=== PATIENT | female | born 1965 | race Caucasian/White ===

== ENCOUNTER → 2016-10-19 | Outpatient (REF) | payer BC ==
[~2016-10-19] MED LIST: LISI10TA4 PO
[2016-10-19 13:51] LABS: PERCENT SATURATION 45.8 % (13.2-37.4)
== END ==
LOC: M LAB REF 12:43
PROVIDERS: ATTEND Internal Medicine Medical Oncology
DX: E83.110 Hereditary hemochromatosis (principal)

== ENCOUNTER 2016-11-12 19:58 | Emergency (ER) | payer BC ==
[~2016-11-12] VITALS: Ht 162.6 cm; Wt 79.5 kg
[2016-11-12] MEDS ORDERED: KETOROLAC 30 MG/ML VIAL (J1885) IV ONE (20:45)
[2016-11-12] MEDS ORDERED: NS 1,000 ML IV ONE (20:45)
[2016-11-12] MEDS ORDERED: ONDANSETRON 4MG/2ML VIAL (J2405) IV ONE (20:45)
[2016-11-12] MEDS ORDERED: GASTROGRAFIN SOLUTION 30ML (Q9963) As Ordered ONE (20:51)
[2016-11-12] MEDS ORDERED: GASTROGRAFIN SOLUTION 30ML PO ONE (20:55)
[2016-11-12 21:07] LABS: BASO % 0.4 % (0.0-1.0); EOS # 1.7 K/mm3 (0.0-0.50); EOS % 15.1 % (0.0-3.0); LARGE UNSTAINED CELL # 0.1 K/mm3 (0.0-0.4); LARGE UNSTAINED CELL % 1.2 % (0.0-4.0); LYMPH # 2.6 K/mm3 (1.5-4.5); LYMPH % 21.4 % (24.0-44.0); MEAN CORPUSCULAR HEMOGLOBIN 32.3 pg (27.0-33.0); MEAN CORPUSCULAR HGB CONC 34.3 g/dl (32.0-36.5); MEAN CORPUSCULAR VOLUME 93.9 fl (80.0-96.0); MONO # 0.5 K/mm3 (0.0-0.8); MONO % 4.2 % (0.0-5.0); NEUTROPHILS # 6.6 K/mm3 (1.8-7.7); NEUTROPHILS % 57.6 % (36.0-66.0); PLATELET COUNT, AUTOMATED 272 k/mm3 (150-450); RED CELL DISTRIBUTION WIDTH 13.3 % (11.5-14.5); WHITE BLOOD COUNT 11.4 K/mm3 (4.0-10.0)
[2016-11-12 21:25] LABS: ALBUMIN 3.8 GM/DL (3.2-5.2); ALKALINE PHOSPHATASE 92 U/L (45-117); ALT/SGPT 20 U/L (12-78); AMYLASE 52 U/L (25-115); ANION GAP 7 MEQ/L (8-16); AST/SGOT 11 U/L (15-37); BILIRUBIN,DIRECT 0.1 MG/DL (0.0-0.2); BILIRUBIN,TOTAL 0.6 MG/DL (0.2-1.0); BLOOD UREA NITROGEN 11 MG/DL (7-18); CALCIUM LEVEL 8.9 MG/DL (8.5-10.1); CARBON DIOXIDE LEVEL 27 MEQ/L (21-32); CHLORIDE LEVEL 99 MEQ/L (98-107); CREATININE FOR GFR 0.94 MG/DL (0.55-1.02); GLOMERULAR FILTRATION RATE > 60.0 (>51); GLUCOSE, FASTING 86 MG/DL (70-105); POTASSIUM SERUM 3.2 MEQ/L (3.5-5.1); SODIUM LEVEL 133 MEQ/L (136-145); TOTAL PROTEIN 7.6 GM/DL (6.4-8.2)
[2016-11-12] MEDS ORDERED: GASTROGRAFIN SOLUTION 30ML (Q9963) PO ONE (21:25)
[2016-11-12] MEDS ORDERED: POTASSIUM CHLORIDE INJ 10 MEQ in D5W/0.2% SODIUM CHLORIDE 1,000 ML IV ONE (22:00)
[2016-11-12] MEDS ORDERED: ISOVUE-370 76% 100ML VIAL (Q9967) As Ordered ONE (22:24)
--- NOTE | 2016-11-12 23:00 | REPUSA ---
CT of the abdomen and pelvis with contrast Clinical statement: Pain. Technique: Multiple axial CT images were obtained from the base of the lungs through the floor of the pelvis utilizing 5 mm axial slices after administration of oral and nonionic intravenous contrast. C oronal and sagittal reconstructions were also obtained. Comparison: None. Findings: Chest: The visualized lung bases are clear. Abdomen: The liver, spleen, pancreas, kidneys, gallbladder, and adrenal glands are unremarkable. The aorta is within normal limits. There is no evidence of abdominal lymphadenopathy or ascites. Pelvis: There is focal bowel wall thickening in the distal sigmoid colon, consistent with acute sigm oid diverticulitis. There is no evidence of abscess or perforation. There is no evidence of bowel obs truction. The appendix is normal. The urinary bladder is within normal limits. The other pelvic struc tures appear grossly intact. There is no evidence of pelvic lymphadenopathy or ascites. Bones: There are no suspicious osseous abnormalities seen. Impression: 1. Acute sigmoid diverticulitis.
[2016-11-12] MEDS ORDERED: FLAG500T PO (23:25)
[2016-11-12] MEDS ORDERED: ZOFR4TAB3 PO (23:25)
[2016-11-12] MEDS ORDERED: CIPR-249 PO (23:25)
[2016-11-12] MEDS ORDERED: PERC5TAB12 PO (23:26)
[2016-11-12] MEDS ORDERED: CIPROFLOXACIN 500 MG TAB PO ONE (23:30)
[2016-11-12] MEDS ORDERED: POTASSIUM CHLORIDE 10 MEQ SR TABLET PO ONE (23:30)
[2016-11-12] MEDS ORDERED: OXYCODONE/APAP 5MG/325MG(BULK FOR ED) 1 TABLET PO ONE (23:30)
[2016-11-12] MEDS ORDERED: metroNIDAZOLE (FLAGYL) 500 MG TAB PO ONE (23:30)
[2016-11-12 23:34] VITALS: BP 138/71
== END 2016-11-12 23:59 | disposition home or self-care (01) ==
LOC: M ED 19:58
DX: K57.32 Diverticulitis of large intestine without perforation or abscess without bleeding (principal); I10 Essential (primary) hypertension; E83.119 Hemochromatosis, unspecified; Z79.899 Other long term (current) drug therapy; Z88.0 Allergy status to penicillin; Z87.891 Personal history of nicotine dependence
CPT/HCPCS: 74177; 80048; 80076; 81001; 82150; 83690; 85025; 86140; 96374; 96375; 99283; J1885; J2405; Q9963; Q9967

== ENCOUNTER → 2017-05-18 | Outpatient (REF) | payer BC ==
[2017-05-18 14:11] LABS: FERRITIN 92 NG/ML (8-252); IRON (FE) 106 UG/DL (50-170); PERCENT SATURATION 36.4 % (13.2-45.0); TOTAL IRON BINDING CAPACITY 291 UG/DL (250-450)
== END ==
LOC: M LAB REF 12:58
DX: I10 Essential (primary) hypertension (principal); E78.00 Pure hypercholesterolemia, unspecified; E83.110 Hereditary hemochromatosis
CPT/HCPCS: 83550

== ENCOUNTER → 2017-05-18 | Outpatient (REF) | payer BC ==
[2017-05-18 14:13] LABS: CHOLESTEROL LEVEL 308 MG/DL (<200); CHOLESTEROL RISK RATIO 4.219 (<5); HDL CHOLESTEROL 73 MG/DL (>40); LDL CHOLESTEROL 208.2 MG/DL (<100); NON-HDL-C 235 MG/DL; TRIGLYCERIDES LEVEL 134 MG/DL (<150)
== END ==
LOC: M LAB REF 14:24
DX: E78.2 Mixed hyperlipidemia (principal); I10 Essential (primary) hypertension
CPT/HCPCS: 80061

== ENCOUNTER → 2017-11-15 | Outpatient (REF) | payer BC, OTHER ==
[2017-11-15 14:01] LABS: FERRITIN 91 NG/ML (8-252); IRON (FE) 142 UG/DL (50-170); PERCENT SATURATION 44.9 % (13.2-45.0); TOTAL IRON BINDING CAPACITY 316 UG/DL (250-450)
== END ==
LOC: M LAB REF 13:39
DX: D50.9 Iron deficiency anemia, unspecified (principal)
CPT/HCPCS: 83550

== ENCOUNTER 2020-02-04 14:17 | Inpatient (IN) | payer BC ==
[~2020-02-04] VITALS: Ht 162.6 cm; Wt 83.2 kg
[~2020-02-04 14:17] MED LIST changes: +CIPR-249 PO; +FLAG500T PO; +PERC5TAB12 PO; +ZOFR4TAB14 PO
[2020-02-04 14:57] LABS: BASO % 0.7 % (0.0-1.0); EOS # 0.1 10^3/uL (0.0-0.5); EOS % 1.3 % (0.0-3.0); HEMATOCRIT 39.5 % (36.0-47.0); HEMOGLOBIN 13.2 g/dl (12.0-15.5); LYMPH # 1.6 10^3/uL (1.5-5.0); LYMPH % 25.6 % (24.0-44.0); MEAN CORPUSCULAR HEMOGLOBIN 31.4 pg (27.0-33.0); MEAN CORPUSCULAR HGB CONC 33.4 g/dl (32.0-36.5); MONO # 0.3 10^3/uL (0.0-0.8); MONO % 5.3 % (0.0-5.0); NEUTROPHILS # 4.1 10^3/uL (1.5-8.5); NEUTROPHILS % 66.8 % (36.0-66.0); PLATELET COUNT, AUTOMATED 261 10^3/uL (150-450); WHITE BLOOD COUNT 6.1 10^3/uL (4.0-10.0)
[2020-02-04 15:09] LABS: INR 0.87; PARTIAL THROMBOPLASTIN TIME 24.8 SECONDS (24.2-38.5)
--- NOTE | 2020-02-04 15:09 | REPVR ---
PROCEDURE INFORMATION: Exam: XR Chest, 2 Views Exam date and time: 02/04/2020 2:35 PM Age: 55 years old Clinical indication: Chest pain TECHNIQUE: Imaging protocol: XR of the chest Views: Frontal and lateral upright views. COMPARISON: No relevant prior studies available. FINDINGS: Tubes, catheters and devices: EKG leads are present overlying the anterior chest. Lungs: The lungs are clear bilaterally. The pulmonary vasculature is normal. Pleural space: No pleural effusion. No pneumothorax. Heart/Mediastinum: The heart is normal in size and contour. Vasculature: Moderate aortic arch atherosclerotic calcification without ectasia. Bones/joints: No acute chest wall abnormality identified. IMPRESSION: No acute cardiopulmonary abnormality identified. Electronically signed by: Sammy Joaquin On 02/04/2020 15:09:41 PM
[2020-02-04 15:35] LABS: ALBUMIN 3.6 GM/DL (3.2-5.2); ALT/SGPT 27 U/L (12-78); BILIRUBIN,DIRECT < 0.1 MG/DL (0.0-0.2); BILIRUBIN,TOTAL 0.3 MG/DL (0.2-1.0); BLOOD UREA NITROGEN 9 MG/DL (7-18); CALCIUM LEVEL 9.1 MG/DL (8.5-10.1); CARBON DIOXIDE LEVEL 29 MEQ/L (21-32); CHLORIDE LEVEL 107 MEQ/L (98-107); CK-MB VALUE MASS < 1.0 NG/ML (<3.6); CPK CREATINE PHOSPHOKINASE 70 U/L (26-192); GLOMERULAR FILTRATION RATE > 60.0 (>51); GLUCOSE, FASTING 106 MG/DL (70-100); LIPASE 116 U/L (73-393); MB/CK RELATIVE INDEX 1.43 (< OR =4); SODIUM LEVEL 138 MEQ/L (136-145); TOTAL PROTEIN 7.1 GM/DL (6.4-8.2); TROPONIN I < 0.02 NG/ML (< 0.10)
[2020-02-04] MEDS ORDERED: LABETALOL 100MG/20ML VIAL IV STA (16:05)
[2020-02-04] MEDS ORDERED: ISOVUE-370 76% 100ML VIAL As Ordered ONE (16:16)
--- NOTE | 2020-02-04 17:03 | REPVR ---
PROCEDURE INFORMATION: Exam: CT Angiography Chest With Contrast Exam date and time: 02/04/2020 3:59 PM Age: 55 years old Clinical indication: Other: Hypertension; Chest pain; Additional info: Chest pain, hypertension TECHNIQUE: Imaging protocol: Computed tomographic angiography of the chest with intravenous contrast. 3D rendering (Not supervised by radiologist): MIP and/or 3D reconstructed images were created by the technologist. Radiation optimization: All CT scans at this facility use at least one of these dose optimization techniques: automated exposure control; mA and/or kV adjustment per patient size (includes targeted exams where dose is matched to clinical indication); or iterative reconstruction. Contrast material: ISOVUE 370; Contrast volume: 75 ml; Contrast route: INTRAVENOUS (IV); COMPARISON: CR Chest, 2 view PA, Lat 02/04/2020 2:46 PM FINDINGS: Pulmonary arteries: Normal. No pulmonary emboli. Aorta: Mild aortic arch, branch, and descending thoracic aortic atherosclerotic calcification without ectasia. Thyroid: The partially imaged bilateral thyroid lobes are unremarkable. Lungs: Unremarkable. No consolidation. No masses. Pleural space: No pneumothorax. No pleural effusion. Heart: Normal. No pericardial effusion. Lymph nodes: No enlarged lymph nodes. Bones/joints: Diffuse osteopenia. Soft tissues: Unremarkable. IMPRESSION: 1. No thoracic aortic aneurysm or dissection identified. 2. No pulmonary embolism identified. Electronically signed by: Sammy Joaquin On 02/04/2020 17:03:11 PM
[2020-02-04] MEDS ORDERED: lisinopriL 10 MG TAB PO ONE (17:30)
[2020-02-04] MEDS ORDERED: cloNIDine 0.2 MG TAB PO ONE (17:30)
[2020-02-04] MEDS ORDERED: MORPHINE 4 MG/ML 1ML VIAL/SYRINGE (J2270) IV PRN (18:00)
[2020-02-04] MEDS ORDERED: NITROGLYCERIN 0.4 MG SUBL TABLET SL ONE (18:00)
[2020-02-04] MEDS ORDERED: PERCOCET 5MG/325MG TAB PO PRN ×2 (18:00)
[2020-02-04] MEDS ORDERED: NITROGLYCERIN 0.4 MG SUBL TABLET SL PRN (18:00)
[2020-02-04] MEDS ORDERED: MORPHINE 4 MG/ML 1ML VIAL/SYRINGE (J2270) IV ONE (18:00)
[2020-02-04] MEDS ORDERED: PANTOPRAZOLE 40MG VIAL (C9113 PER 1) IV ONE (18:00)
[2020-02-04] MEDS ORDERED: PERCOCET 5MG/325MG TAB PO ONE (18:00)
[2020-02-04] MEDS ORDERED: LISI-538 PO (18:40)
--- NOTE | 2020-02-04 20:33 | ECGEPIP ---
[facility] - ED Test Date: 2020-02-04 Pat Name: PEBBLES THORNTON Department: Room: - Gender: Female Surveillance Specialist: Rishi VILLARREAL : 1965 Requested By: KATARZYNA Barrera Order Number: [id number] Reading MD: Agata Morataya Measurements Intervals [place] Rate: 74 P: 48 NM: 167 QRS: 17 QRSD: 100 T: 17 QT: 410 QTc: 455 Interpretive Statements SINUS RHYTHM WITH SINUS ARRHYTHMIA NO PRIOR Electronically Signed on 02-04-2020 20:32:47 EDT by Agata Morataya
[2020-02-04] MEDS ORDERED: lisinopriL 10 MG TAB PO SCH (21:00)
[2020-02-04] MEDS: LABETALOL 100 MG TAB PO SCH (21:00)
[2020-02-04 21:45] VITALS: BP 139/77
[2020-02-04] MEDS ORDERED: SLF 3 ML SYR IV PRN (22:00)
[2020-02-04] MEDS: SLF 3 ML SYR IV SCH (22:00)
[2020-02-04] MEDS ORDERED: ACETAMINOPHEN TAB 650MG DOSE (2X325MG) PO PRN (22:30)
--- NOTE | 2020-02-04 22:50 | REPVR ---
PROCEDURE INFORMATION: Exam: CT Head Without Contrast Exam date and time: 02/04/2020 10:43 PM Age: 55 years old Clinical indication: Pain; Headache; Additional info: Htnurgency R/O hemorrhage TECHNIQUE: Imaging protocol: Computed tomography of the head without contrast. Radiation optimization: All CT scans at this facility use at least one of these dose optimization techniques: automated exposure control; mA and/or kV adjustment per patient size (includes targeted exams where dose is matched to clinical indication); or iterative reconstruction. COMPARISON: No relevant prior studies available. FINDINGS: Brain: Normal. No hemorrhage. Unremarkable white matter. No mass effect. Ventricles: No ventriculomegaly. Bones/joints: Unremarkable. No acute fracture. Paranasal sinuses: Visualized sinuses are unremarkable. No fluid levels. Mastoid air cells: Visualized mastoid air cells are well aerated. Soft tissues: Unremarkable. IMPRESSION: No acute intracranial abnormality. Electronically signed by: Sidney Lynn On 02/04/2020 22:50:45 PM
[2020-02-05] VITALS: BP 122/61
[2020-02-05 00:45] LABS: CK-MB VALUE MASS < 1.0 NG/ML (<3.6); CPK CREATINE PHOSPHOKINASE 51 U/L (26-192); MB/CK RELATIVE INDEX 1.96 (< OR =4); TROPONIN I < 0.02 NG/ML (< 0.10)
[2020-02-05 04:00] VITALS: BP 102/55
[2020-02-05 05:05] LABS: BASO % 0.5 % (0.0-1.0); EOS # 0.1 10^3/uL (0.0-0.5); EOS % 1.9 % (0.0-3.0); HEMATOCRIT 36.7 % (36.0-47.0); HEMOGLOBIN 12.1 g/dl (12.0-15.5); LYMPH # 2.6 10^3/uL (1.5-5.0); LYMPH % 41.2 % (24.0-44.0); MEAN CORPUSCULAR HEMOGLOBIN 31.6 pg (27.0-33.0); MEAN CORPUSCULAR VOLUME 95.8 fl (80.0-96.0); MONO # 0.5 10^3/uL (0.0-0.8); MONO % 8.3 % (0.0-5.0); NEUTROPHILS % 47.9 % (36.0-66.0); PLATELET COUNT, AUTOMATED 240 10^3/uL (150-450); RED BLOOD COUNT 3.83 10^6/uL (4.00-5.40); WHITE BLOOD COUNT 6.3 10^3/uL (4.0-10.0)
[2020-02-05 05:48] LABS: BLOOD UREA NITROGEN 16 MG/DL (7-18); CALCIUM LEVEL 8.4 MG/DL (8.5-10.1); CARBON DIOXIDE LEVEL 30 MEQ/L (21-32); CHLORIDE LEVEL 104 MEQ/L (98-107); CHOLESTEROL LEVEL 246 MG/DL (<200); CHOLESTEROL RISK RATIO 3.843 (<5); CK-MB VALUE MASS < 1.0 NG/ML (<3.6); CPK CREATINE PHOSPHOKINASE 51 U/L (26-192); CREATININE FOR GFR 1.36 MG/DL (0.55-1.30); GLOMERULAR FILTRATION RATE 42.8 (>51); GLUCOSE, FASTING 82 MG/DL (70-100); HDL CHOLESTEROL 64 MG/DL (>40); LDL CHOLESTEROL 161 MG/DL (<100); MAGNESIUM LEVEL 2.2 MG/DL (1.8-2.4); MB/CK RELATIVE INDEX 1.96 (< OR =4); NON-HDL-C 182 MG/DL; POTASSIUM SERUM 4.1 MEQ/L (3.5-5.1); SODIUM LEVEL 139 MEQ/L (136-145); TRIGLYCERIDES LEVEL 104 MG/DL (<150); TROPONIN I < 0.02 NG/ML (< 0.10)
[2020-02-05] MEDS: SLF 3 ML SYR IV SCH ×3 (05:56→21:39)
[2020-02-05 08:00] VITALS: BP 104/57
[2020-02-05] MEDS ORDERED: NS 1,000 ML IV SCH (08:45)
[2020-02-05] MEDS: LABETALOL 100 MG TAB PO SCH ×2 (09:00→21:38)
[2020-02-05 12:00] VITALS: BP 129/63
[2020-02-05 16:00] VITALS: BP 154/73
--- NOTE | 2020-02-05 19:39 | IPNPDOC ---
Date Seen The patient was seen on 02/05/20. Progress Note SUBJECTIVE: No acute events overnight. Denies chest heaviness, trop neg. Cr elevated this AM, started on gentle IVF hydration for several hours. Echo being done, f/u results. Patient denies shortness of breath, n/v/d, abdominal pain, lightheadedness. OBJECTIVE: VITAL SIGNS: Please see below PHYSICAL EXAMINATION: CONSTITUTIONAL: No acute distress, resting comfortably, AAO x 3 EYES: PERRLA, EOM intact HENT, MOUTH: Normocephalic, atraumatic, moist mucous membranes NECK: SUPPLE, no JVD, no lymphadenopathy, no carotid bruit CV: Regular rate and rhythm, S1S2 normal, no murmurs/rubs/gallops RESPIRATORY: Clear to auscultation bilaterally, no rales/rhonchi/wheezes GI: BS positive in 4 quadrants, soft, nontender, nondistended, no rebound or guarding, no organomegaly : Deferred MUSCULOSKELETAL: Normal ROM. No cyanosis, clubbing, swelling, joint deformity, extremity edema INTEGUMENTARY: Intact, no rashes, no lesions, no erythema NEUROLOGIC: Cranial Nerves II-XII are intact, no focal deficits PSYCHIATRIC: Mood and affect are normal CURRENT MEDICATIONS: Please see below LABORATORY DATA: Please see below IMAGING: Echocardiogram: pending results ASSESSMENT: 55 y/o F with PMH of HTN, hx TMJ, tobacco use, hemochromatosis carrier, obesity who was admitted for further workup/treatment of hypertensive urgency, chest pain r/o ACS. PLAN: 1. Hypertensive urgency -BP actually lower than normal at low 100's systolic, increased to 150's systolic by mid-day -C/w current medications -F/u renal ultrasound to r/o structural cause of hypertension 2. Acute kidney injury possibly 2/2 to hypertensive urgency -Cr 1.36, incr from 0.80 -Stopped ACEi BID, received one dose evening of 02/04/20 -Given fluids for 5 hours today, encouraged to drink PO -F/u AM labs, avoid nephrotoxic meds. 3. Chest pain, atypical possibly 2/2 to hypertensive urgency -Trop neg x3, no events on tele. Pain better with improvement of BP -F/u echocardiogram. -C/w BB, nitro PRN, BP control above. 4. DVT px. -heparin SC DISPOSITION: F/u echocardiogram, will need o/p stress test at discharge. Plan is discharge home when medically improved and workup is complete. VS, I&O, 24H, Fishbone Vital Signs/I&O Vital Signs Date Time Temp Pulse Resp B/P (MAP) Pulse Ox O2 Delivery O2 Flow Rate FiO2 02/05/20 16:00 97.8 73 18 154/73 (100) 97 Room Air I&O- Last 24 Hours up to 6 AM 02/05/20 06:00 Intake Total 300 ml Output Total 350 ml Balance -50 ml Laboratory Data 24H LABS Laboratory Tests 2 02/05/20 00:02: Total Creatine Kinase 51, Creatine Kinase MB < 1.0, Creatine Kinase MB Relative Index 1.96, Troponin I < 0.02 02/05/20 04:55: Total Creatine Kinase 51, Creatine Kinase MB < 1.0, Creatine Kinase MB Relative Index 1.96, Troponin I < 0.02, Immature Granulocyte % (Auto) 0.2, Neutrophils (%) (Auto) 47.9, Lymphocytes (%) (Auto) 41.2, Monocytes (%) (Auto) 8.3H, Eosinophils (%) (Auto) 1.9, Basophils (%) (Auto) 0.5, Neutrophils # (Auto) 3.0, Lymphocytes # (Auto) 2.6, Monocytes # (Auto) 0.5, Eosinophils # (Auto) 0.1, Basophils # (Auto) 0.0, Nucleated Red Blood Cells % (auto) 0.0, Anion Gap 5L, Glomerular Filtration Rate 42.8L, Calcium Level 8.4L, Magnesium Level 2.2, Triglycerides Level 104, Total Cholesterol 246H, LDL Cholesterol 161H, Non-HDL Cholesterol (LDL + VLDL) 182, Total HDL Cholesterol 64, Cholesterol/HDL Ratio 3.843 CBC/BMP Laboratory Tests 02/05/20 04:55 Current Medications Current Medications Medications (Trade) Dose Ordered Sig/Conchita Route PRN Reason Start Time Stop Time Status Last Admin Dose Admin Acetaminophen (Tylenol Tab) 650 mg Q6HP PRN PO PAIN / FEVER 02/04/20 22:30 Home Med (Med Rec Complete!) ASDIRECTED XX 02/04/20 18:45 02/04/20 18:48 DC Labetalol HCl (Normodyne, Trandate) 10 mg STAT STAT IV 02/04/20 16:05 02/04/20 16:07 DC 02/04/20 16:53 Labetalol HCl (Normodyne, Trandate) 100 mg BID PO 02/04/20 21:00 Lisinopril (Prinivil) 10 mg BID PO 02/04/20 21:00 02/05/20 08:32 DC 02/04/20 22:05 Morphine Sulfate (Morphine Sulfate Inj) 3 mg Q2HP PRN IV chest pain 02/04/20 18:00 Nitroglycerin (Nitrostat (1/ 150)) 0.4 mg Q5MP PRN SL CHEST PAIN 02/04/20 18:00 Oxycodone/ Acetaminophen (Percocet 5mg/ 325mg Tablet) 1 tab Q4HP PRN PO MILD/MODERATE PAIN (PS 1-7) 02/04/20 18:00 02/05/20 00:43 Oxycodone/ Acetaminophen (Percocet 5mg/ 325mg Tablet) 2 tab Q6HP PRN PO SEVERE PAIN (PS 8-10) 02/04/20 18:00 Sodium Chloride 1,000 ml @ 100 mls/hr Q10H IV 02/05/20 08:45 02/05/20 13:00 DC 02/05/20 09:55 Sodium Chloride (Saline Lock Flush) 2 ml ASDIRECTED PRN IV SEE LABEL COMMENTS 02/04/20 22:00 Sodium Chloride (Saline Lock Flush) 2 ml SLF IV 02/04/20 22:00 02/05/20 05:56 Allergies Coded Allergies: Penicillins (Verified Allergy, Mild, Rash, 09/12/18) Barbara Caballero MD Feb 05, 2020 19:39
[2020-02-05 20:00] VITALS: BP 164/76
[2020-02-05] MEDS: HEPARIN SOD (PORCINE) 5000UNITS/ML 1ML VIAL/SYRINGE SQ SCH (21:38)
[2020-02-06] VITALS: BP 141/73
[2020-02-06 04:00] VITALS: BP 131/64
[2020-02-06 05:40] LABS: BASO % 0.6 % (0.0-1.0); EOS # 0.2 10^3/uL (0.0-0.5); EOS % 2.8 % (0.0-3.0); HEMOGLOBIN 12.1 g/dl (12.0-15.5); LYMPH # 2.3 10^3/uL (1.5-5.0); LYMPH % 43.6 % (24.0-44.0); MEAN CORPUSCULAR HEMOGLOBIN 31.3 pg (27.0-33.0); MEAN CORPUSCULAR HGB CONC 32.7 g/dl (32.0-36.5); MEAN CORPUSCULAR VOLUME 95.6 fl (80.0-96.0); MONO # 0.4 10^3/uL (0.0-0.8); MONO % 7.1 % (0.0-5.0); NEUTROPHILS # 2.5 10^3/uL (1.5-8.5); NEUTROPHILS % 45.5 % (36.0-66.0); PLATELET COUNT, AUTOMATED 242 10^3/uL (150-450); RED BLOOD COUNT 3.87 10^6/uL (4.00-5.40); WHITE BLOOD COUNT 5.4 10^3/uL (4.0-10.0)
[2020-02-06 05:53] LABS: BLOOD UREA NITROGEN 17 MG/DL (7-18); CALCIUM LEVEL 8.4 MG/DL (8.5-10.1); CARBON DIOXIDE LEVEL 28 MEQ/L (21-32); CHLORIDE LEVEL 109 MEQ/L (98-107); CREATININE FOR GFR 0.86 MG/DL (0.55-1.30); GLOMERULAR FILTRATION RATE > 60.0 (>51); GLUCOSE, FASTING 80 MG/DL (70-100); MAGNESIUM LEVEL 2.4 MG/DL (1.8-2.4); POTASSIUM SERUM 4.3 MEQ/L (3.5-5.1); SODIUM LEVEL 139 MEQ/L (136-145)
[2020-02-06] MEDS: SLF 3 ML SYR IV SCH ×2 (06:09→13:17)
[2020-02-06 08:00] VITALS: BP 149/68
[2020-02-06] MEDS ORDERED: lisinopriL 20 MG TAB PO SCH (09:00)
[2020-02-06] MEDS: LABETALOL 100 MG TAB PO SCH (09:01)
[2020-02-06] MEDS: HEPARIN SOD (PORCINE) 5000UNITS/ML 1ML VIAL/SYRINGE SQ SCH (09:01)
--- NOTE | 2020-02-06 09:10 | REPVR ---
PROCEDURE INFORMATION: Exam: US Duplex Artery and Vein of the Abdominal and/or Reproductive Organs, Complete Kidneys Exam date and time: 02/06/2020 8:18 AM Age: 55 years old Clinical indication: Other: Hypertension TECHNIQUE: Imaging protocol: Real-time duplex ultrasound scan of the arterial and venous flow with color Doppler flow and spectral waveform analysis with image documentation. Complete duplex exam focused on the kidneys. Duplex images required to evaluate vascular conditions. COMPARISON: No relevant prior studies available. FINDINGS: Right kidney: Right kidney measures 12.1 cm in length. No hydronephrosis. Right renal artery: Peak systolic velocities in the right renal artery, from proximal to distal, measure 79, 72, and 141 cm/s. Right renal artery to aortic peak systolic velocity ratio measures 2.0. Duplex waveforms are within normal limits. Normal acceleration times. Right interlobar/arcuate arteries: Right renal resistive indices measure 0.7, 0.7, and 0.7. Right renal vein: Not imaged Left kidney: Left kidney measures 11.8 cm in length. No hydronephrosis. Left renal artery: Peak systolic velocities in the left renal artery, from proximal to distal, measure 75, 145, and 113 cm/s. Left renal artery to aortic peak systolic velocity ratio measures 2.1. Duplex waveforms are within normal limits. Normal acceleration times. Left interlobar/arcuate arteries: Left renal resistive indices measure 0.7, 0.7, and 0.7. Left renal vein: Not imaged Aorta: Peak systolic velocity within the mid abdominal aorta measures 69 cm/s. Bladder: Urinary bladder appears within normal limits. IMPRESSION: No evidence of hemodynamically significant renal artery stenosis. Electronically signed by: Heather Negro On 02/06/2020 09:09:49 AM
[2020-02-06 12:00] VITALS: BP 145/82
[2020-02-06 13:17] VITALS: BP 145/82
[2020-02-06] MEDS ORDERED: LISI-538 PO (14:27)
[2020-02-06] MEDS ORDERED: METO1TAB87 PO (14:27)
--- NOTE | 2020-02-06 14:34 | DS.PDOC ---
Discharge Summary General Date of Admission Feb 05, 2020 at 10:02 Date of Discharge 02/06/20 Attending Physician: Barbara Caballero MD Discharge Summary ADMITTING DIAGNOSES: 1. Chest pain r/o ACS 2. Hypertensive urgency DISCHARGE DIAGNOSES: 1. Atypical chest pain likely 2/2 to hypertensive urgency 2. Hypertensive urgency CHIEF COMPLAINT: chest pain HISTORY OF PRESENT ILLNESS: Patient is a 55 y/o F with PMH of tobacco use, HTN, hemochromatosis carrier, hx of TMJ, obesity who presented with chief complaint of chest pain on 02/04/20. She states chest pain was present for 2 days, substernal in location, radiating up the left arm with jaw pain , associated shortness of breath and weakness. She denied diaphoresis or n/v. Chest pain lasted for hours, no immediate relief was available so she came to the ER for further evaluation. In the ER, CT chest was neg for PE or dissection, CT head neg for hemorrhage, ECG no ST or T wave changes. BP found to be 218/115. She was given IV labetalol, lisinopril, clonidine, percocet for jaw pain. Troponin neg. She was later admitted for chest pain r/o ACS, hypertensive urgency. Of note, patient admits to many life stressors for which may be contributing to her stress. HOSPITAL COURSE: Troponins were cycled, three sets neg. No events on telemetry with improvement of chest pain with resolution of hypertensive urgency. On day 2 of hospitalization, Cr increased and IVFs were started. Echocardiogram was done. She remained free of chest pain or increased SOB, headache the remainder of her stay. On 02/06/20, her Cr normalized, IVFs were stopped. Echocardiogram was done but still not read. It was discussed with patient that discharge would occur but she would need to f/u with PCP within 1-2 weeks and PCP would also need to f/u on echocardiogram results. She will be needing outpatient referral to battery stacker for stress test. Patient admits that there are several things at home that are causing increased stress for her and said she plans on removing some of these. At the time of discharge, patient denied chest pain/pressure, shortness of breath, n/v/d, diaphoresis, fevers, chills, abdominal pain. DISCHARGE MEDICATIONS: Please see below. ALLERGIES: Please see below. PHYSICAL EXAMINATION: VS: Please see below CONSTITUTIONAL: No acute distress, resting comfortably, AAO x 3 EYES: PERRLA, EOM intact HENT, MOUTH: Normocephalic, atraumatic, moist mucous membranes NECK: SUPPLE, no JVD, no lymphadenopathy, no carotid bruit CV: Regular rate and rhythm, S1S2 normal, no murmurs/rubs/gallops RESPIRATORY: Clear to auscultation bilaterally, no rales/rhonchi/wheezes GI: BS positive in 4 quadrants, soft, nontender, nondistended, no rebound or guarding, no organomegaly : Deferred MUSCULOSKELETAL: Normal ROM. No cyanosis, clubbing, swelling, joint deformity, extremity edema INTEGUMENTARY: Intact, no rashes, no lesions, no erythema NEUROLOGIC: Cranial Nerves II-XII are intact, no focal deficits PSYCHIATRIC: Mood and affect are normal LABORATORY DATA: Please see below IMAGING: Echocardiogram: pending results Renal US: Neg ASSESSMENT: 55 y/o F with PMH of HTN, hx TMJ, tobacco use, hemochromatosis emiliana er, obesity who was admitted for further workup/treatment of hypertensive urgency, atypical chest pain being discharged today. PLAN: 1. Hypertensive urgency, resolved. -History of uncontrolled BP per patient -Renal US: neg -Patient is to continue home lisinopril but switch to QAM from Q and adding metoprolol tartrate 25 mg PO BID. - Requires close f/u with PCP on this issue 2. Acute kidney injury possibly 2/2 to hypertensive urgency- resolved -Cr wnl. -resumed ACEi daily, encourage PO fluid hydration. -recommend f/u with PCP with repeat labs in several weeks. 3. Chest pain, atypical possibly 2/2 to hypertensive urgency -Trop neg x3, no events on tele. Pain better with improvement of BP -Echocardiogram to be followed up by PCP -Will need o/p referral to cardiology for stress test -C/w BB, ACEi. DISPOSITION: Discharged home in improved health with f/u with PCP within 1-2 we eks. O/P cardiology referral recommended for stress test. ACTIVITY: As tolerated DIET: Low salt DISCHARGE CONDITION: Stable TIME SPENT ON DISCHARGE: Greater than 30 minutes. Vital Signs/I&Os Vital Signs Date Time Temp Pulse Resp B/P (MAP) Pulse Ox O2 Delivery O2 Flow Rate FiO2 9/23/20 13:17 145/82 02/06/20 12:00 97.3 67 18 99 Room Air I&O- Last 24 Hours up to 6 AM 02/06/20 06:00 Intake Total 1440 ml Output Total 3100 ml Balance -1660 ml Laboratory Data Labs 24H Laboratory Tests 2 02/06/20 05:17: Immature Granulocyte % (Auto) 0.4, Neutrophils (%) (Auto) 45.5, Lymphocytes (%) (Auto) 43.6, Monocytes (%) (Auto) 7.1H, Eosinophils (%) (Auto) 2.8, Basophils (%) (Auto) 0.6, Neutrophils # (Auto) 2.5, Lymphocytes # (Auto) 2.3, Monocytes # (Auto) 0.4, Eosinophils # (Auto) 0.2, Basophils # (Auto) 0.0, Nucleated Red Blood Cells % (auto) 0.0, Anion Gap 2L, Glomerular Filtration Rate > 60.0, Calcium Level 8.4L, Magnesium Level 2.4 CBC/BMP Laboratory Tests 02/06/20 05:17 Discharge Medications Scheduled Lisinopril (Lisinopril) 20 Mg Tablet, 20 MG PO QAM Metoprolol Tartrate (Metoprolol Tartrate) 25 Mg Tablet, 25 MG PO BID Allergies Coded Allergies: Penicillins (Verified Allergy, Mild, Rash, 09/12/18) Barbara Caballero MD Feb 06, 2020 14:34
[2020-02-06 16:00] VITALS: BP 152/90
--- NOTE | 2020-02-07 14:43 | ECHO ---
DATE OF PROCEDURE: 02/05/2020 Age: 55 Gender: Female Height: 64 inches Weight: 180 pounds Body surface area: 1.88 m2 PATIENT LOCATION: Inpatient progressive care unit (PCU), Room 3230. REFERRING PHYSICIAN: Jaylene Crowley MD INDICATION: Chest pain. MEASUREMENTS: 2D Measurements: RV 3.5 cm LV 4.2 cm Septum 1.1 cm Posterior wall 1.1 cm Aortic Root 3.0 cm LA 3.5 cm LVEF 65 % Doppler Measurements: AV 1.3 m/s LVOT 0.82 m/s LVOT diameter 2.2 cm MV-E 59, A 61, E/A ratio 1.0 Early mitral deceleration time 243 m/s E prime medial 7.9, A prime medial 8.2, E prime lateral 8.4 PV Not well visualized IVC 2.0 cm COMMENTS: Sinus bradycardia without interventricular conduction disturbance. Somewhat challenging study in light of the patients body habitus, but diagnostic useful information was still obtained. M-mode and two-dimensional echocardiography was performed with pulsed, continuous wave, color flow, and tissue Doppler studies. Normal left ventricle size, wall thickness, and wall motion. Normal left atrial size and Doppler assessment of LV diastolic function and estimated mean left atrial pressure. Normal right heart chamber sizes and motion. Unable to estimate her pulmonary artery pressure; however, with normal heart chamber sizes, wall motion, and normal Inferior vena cava (IVC) size and collapse, unlikely to have severe pulmonary hypertension. Normal aortic root size. Normal appearing and functioning valvular structures. No apparent intracardiac mass or pericardial effusion. MTDD
--- NOTE | 2020-02-12 15:02 | HPE ---
DATE OF ADMISSION: 02/04/2020 CHIEF COMPLAINT: I feel off, my jaws are killing me, my left arm is aching, and I have chest tightness for 2 days. HISTORY OF PRESENTING ILLNESS: 55-year-old female with history of hypertension, hemachromatosis, psoriasis, left knee Bakers cyst, osteoarthritis, presents to the emergency room with acute onset of 2 days chest tightness described in the substernal area, radiation up the left arm, along the left face, says that her jaws are killing her, she complained of this for several hours, felt like her chest was heavy sometimes with some shortness of breath but initially ascribed it to wearing a mask. Patient had not taken any Tylenol or ibuprofen for this or baby aspirin. She made an appointment with her primary care doctor at 1 p.m. today when she was found to have hypertensive urgency, systolic pressure of 200. She has had no prior episode. Denies any headache, changes in vision, gait ataxia, upper or lower extremity weakness. Has had no fever, chills, weight gain, weight loss, no lower extremity edema, paroxysmal nocturnal dyspnea (PND), or orthopnea, and no prior episodes in the past. Her makes most of the meals at home, had broccoli and rice and milk gravy yesterday, usually skips lunch, once in a while will order a salad from outside and usually only has coffee for breakfast, her uses salt, pepper, and garlic usually for seasoning his food. Patient has gained nine pounds since COVID has started. Aside from that, she otherwise denies any dizziness or lightheadedness or changes in vision, scotoma, or upper or lower extremity weakness or paresthesias. In the emergency room (ER), she was found to have blood pressure of 218/115, given one dose of labetalol 10 mg IV, she was given lisinopril and clonidine as well, morphine and nitroglycerin and a baby aspirin. Hospitalist service was called to admit her for hypertensive urgency. Patient had no other complaints. PAST MEDICAL HISTORY: Hypertension, compliant with her lisinopril, hemachromatosis carrier, psoriasis, left knee Bakers cyst, osteoarthritis. ALLERGIES: PENICILLIN and NAPROSYN. PAST SURGICAL HISTORY: Tubal ligation, hysterectomy, bilateral salpingectomy with retained ovaries 2004, temporomandibular joint (TMJ) fracture of her jaw, sinus surgery. FAMILY HISTORY: Father , 72, melanoma, hemachromatosis, hypertension. Mother alive, age 78, osteoporosis, hypertension, Raynauds, Fuchs disease. Siblings with osteoporosis, hypertension. Paternal grandmother in her 60s with colon cancer. Has three sisters, one daughter and one son, both are healthy. Cousin with breast cancer. SOCIAL HISTORY: Previous smoker, a pack a day for 20 years, quit 13 years ago. 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 Lives at home with spouse and daughter. HOME MEDICATIONS: - lisinopril 10 mg daily PHYSICAL EXAMINATION: Blood pressure 218/115, pulse is 79, respiratory rate 16, 100% on room air, temperature 97.1. Generally: Awake, alert, oriented times three, answering questions appropriately. No conversational dyspnea. Anicteric. No jaundice. No jugular venous distension (JVD), thyromegaly, or cervical lymphadenopathy. Patient has no carotid bruits, no stridor on exam. No tracheal deviation. Moist mucous membranes. Face is symmetric, tongue is midline, motor function 5/5 times four extremities. No sensory disturbance. Patient has clear lungs. No wheezing, rales, or rhonchi. Air entry is equal. Heart: S1, S2, sinus rhythm. No murmurs, rubs, or gallops. Abdomen: Soft, nontender, nondistended. Positive bowel sounds. Extremities: No cyanosis, clubbing, or any pitting edema. EKG sinus rhythm without ST-T wave elevation. White count 6, hemoglobin 13, hematocrit 39, platelet count 261, sodium 138, potassium 4, chloride 107, bicarbonate 29, BUN 9, creatinine 0.8, glucose 106, calcium 9.1, total bilirubin 0.3, direct bilirubin less than 0.1, AST 18, ALT 27, alkaline phosphatase 79, total CK 70, MB fraction less than 1, troponin less than 0.02, total protein 7.1, albumin 3.6, lipase of 116. IMAGING STUDIES: CT chest: No pulmonary embolism, aneurysm, pneumonia, congestive heart failure (CHF), diffuse osteopenia. ASSESSMENT AND PLAN: This is a 55-year-old female with history of hypertension, obesity, body mass index (BMI) of 31, hemachromatosis carrier, temporomandibular joint (TMJ) fracture, psoriasis, left knee Bakers cyst, presents to the emergency room with 2 day history of pain in the jaw, chest pain, pressure, shortness of breath, found to have hypertensive urgency. IMPRESSION: 1. Hypertensive urgency. 2. Temporomandibular joint (TMJ) pain. 3. Chest pain, rule out non-ST elevation myocardial infarction (AR). 4. Prior history of smoking, 50-pack year history of smoking. 5. History of hemachromatosis, carrier. 6. Psoriasis. 7. History of left knee Bakers cyst. PLAN: Patient will be admitted to progressive care unit (PCU). She has been given IV labetalol. Continue on home lisinopril but increase to twice a day, give dose of clonidine 0.2, for patients chest pain, she had been given aspirin 81 mg, if troponins are negative, no need to continue. Check lipid panel in the morning. Cycle cardiac markers every 6 hours and repeat EKG. Stat echo regarding chest pain, rule out wall motion abnormality. Patient does have risk factors; being a smoker, hypertension, and obesity, for coronary artery disease and will require a stress test as outpatient. At hospital discharge, she should be referred for an exercise stress test. Deep venous thrombosis (DVT) prophylaxis with compression stockings. Percocet 1-2 tablets for her temporomandibular joint (TMJ) pain and outpatient followup with oral maxillofacial surgeon. YU
== END 2020-02-06 17:07 | disposition home or self-care (01) | DRG 199 ==
LOC: M ED 14:17 → M ED INP 14:18 → M PCU 21:43 → OBSVTOIN 02-05 10:02
PROVIDERS: ADMIT General Practice; ATTEND Internal Medicine
DX: I16.0 Hypertensive urgency (principal); N17.9 Acute kidney failure, unspecified; E66.9 Obesity, unspecified; Z88.0 Allergy status to penicillin

== ENCOUNTER → 2022-04-15 | Outpatient (REF) | payer BC ==
[~2022-04-15] MED LIST changes: +LISI10TA22 PO; -LISI10TA4 PO; +LISI20TA33 PO; +LISI20TA37 PO; +METO1TAB87 PO
== END ==
LOC: M SFHCDERM 13:24
PROVIDERS: ATTEND Dermatology
DX: L90.5 Scar conditions and fibrosis of skin (principal)

== ENCOUNTER → 2025-04-23 | Outpatient (REF) | payer BC ==
[2025-04-23 13:16] LABS: IRON (FE) 89.0 UG/DL (50-170)
[2025-04-23 13:37] LABS: PERCENT SATURATION 29.8 % (13.2-45.0)
== END ==
LOC: M LAB REF 12:43
PROVIDERS: ATTEND Physician Assistant Medical
DX: E83.119 Hemochromatosis, unspecified (principal)